=== PATIENT | male | born 1955 ===

== ENCOUNTER 2021-07-24 10:13 | Emergency (ER) | payer OTHER ==
[~2021-07-24] VITALS: Ht 160 cm; Wt 63.5 kg
[2021-07-24] MEDS ORDERED: KETO10TA2 PO (14:06)
[2021-07-24] MEDS ORDERED: NORFLEX100MG PO (14:06)
== END 2021-07-24 14:21 | disposition home or self-care (01) ==
LOC: ER 10:13
DX: M25.551 Pain in right hip (principal); S70.01XA Contusion of right hip, initial encounter; W18.30XA Fall on same level, unspecified, initial encounter; Y93.9 Activity, unspecified; Y92.009 Unspecified place in unspecified non-institutional (private) residence as the place of occurrence of the external cause